=== PATIENT | female | born 1950 | race Caucasian/White ===

== ENCOUNTER 2017-04-02 11:02 | Emergency (ER) | payer MEDICARE, OTHER ==
[2017-04-02] MEDS ORDERED: Proparacaine 0.5% Ophth Soln 15 ML Bottle EYEBOTH ONE (11:40)
--- NOTE | 2017-04-02 11:42 | EDM.PDOC ---
ED HPI GENERAL MEDICAL PROBLEM - General Chief Complaint: Eye Problems Stated Complaint: RIGHT EYE PAIN Time Seen by Provider: 04/02/17 11:31 - History of Present Illness INITIAL COMMENTS - FREE TEXT/NARRATIVE: HISTORY AND PHYSICAL: History of present illness: Patient is a 66-year-old female who has a history of bilateral cataract surgery with Dr. Abdullahi in December of this year and wears bifocal glasses and presents with right eye irritation, itchiness, redness that is been ongoing for about 5 days. She says she saw her local family doctor who put her on eyedrops because they thought it might be pinkeye and she says that it has persisted and not improved and now she feels like the left eye is getting itchy and somewhat red. The patient denies any excessive tearing and says that today she feels like her vision is slightly blurred on the right side but she has not had headaches or systemic complaints of fever chills sinus congestion cough runny nose nausea or vomiting. She denies any foreign body exposure but says that over the last 1-2 days she has felt like there is itchiness but something is in the eye. She does not recall ever getting anything in the eye. Patient also says that when she wakes in the morning there is matting of the eyelashes on the right side. According to the patient she still has issues with up close vision even using her glasses but feels that her distance since the surgery has been significantly improved Review of systems: As per history of present illness and below otherwise all systems reviewed and negative. Past medical history: As per history of present illness and as reviewed below otherwise noncontributory. Surgical history: As per history of present illness and as reviewed below otherwise noncontributory. Social history: No reported history of drug or alcohol abuse. Family history: As per history of present illness and as reviewed below otherwise noncontributory. Physical exam: Gen.: Well-developed well-nourished female who is nontoxic and not photophobic on my evaluation. She has no overt facial swelling or eyelid swelling and vital signs are noted by me. HEENT: Atraumatic, normocephalic, pupils reactive, there is no orbital tenderness or crepitus and EOMs are intact, conjunctiva on the right are beefy and injected as is the sclera on the right, there is no injection of the conjunctiva on the left and no injection of the sclera on the left negative for conjunctival pallor or scleral icterus, mucous membranes moist, throat clear, neck supple, nontender, trachea midline. Please see below for addendum my exam Lungs: Clear to auscultation, breath sounds equal bilaterally, chest nontender. Heart: S1S2, regular rate and rhythm no overt murmurs Abdomen: Soft, nondistended, nontender. NABS .Genitourinary: Deferred. Rectal: Deferred. Extremities: Atraumatic, negative for cords or calf pain. Neurovascular unremarkable. Neuro: Awake, alert, oriented. Cranial nerves II through XII unremarkable. Cerebellum unremarkable. Motor and sensory unremarkable throughout. Exam nonfocal. Diagnostics: Visual acuity, floor seen stain, Brad-Pen evaluation Therapeutics: Visual acuity for distance--right eye 20/70 left eye 20/50 both eyes 20/40 and up close/reading --- right eye 20/200 left eye 20/100 and bilateral 20/60 with her bifocal sunglasses. Patient states she's not sure if the sunglasses are the exact same prescription but she is not surprised by her up close vision being on the poor side. On funduscopic exam is difficult to get in and see the disc exactly due to post cataract changes and patient's inability to tolerate the exam as well as if she were having a dilated exam. On fluoroscein stain, the left eye shows no uptake and the right eye shows multiple areas of punctate uptake distributed along the inner iris and pupillary area. On visual inspection of the same area it looks as if there are potentially small particulate foreign objects in this area but it is difficult to evaluate. IOP on the left is 13, 14 and on the right 15, 15. 1218: The case was discussed with Dr. Abdullahi who was on-call for ophthalmology as well as the addition who did the patient's cataract surgery. He states that what I am describing is likely due to excessive dryness post cataract surgery and likely a kerotinopathy triggering the irritation the itchiness and the punctate uptake that I am seeing. He recommends stopping the antibiotic drops that she is currently using and starting preservative-free tears to be used every 1-2 hours as well as refresh ointment at bedtime. He told me to inform her to call his office on [address] and they will get her in in the next several days for reevaluation. I relayed this phone conversation and all this information to the patient. 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 right eye Pain Score (Numeric/FACES): 6 - Related Data Allergies Allergy/AdvReac Type Severity Reaction Status Date / Time No Known Allergies Allergy Verified 04/02/17 11:20 Home Meds: Home Meds Ascorbic Acid [Vitamin C] 500 mg PO DAILY 04/02/17 [History] Aspirin 1 tab PO DAILY 04/02/17 [History] Calcium Carbonate [Calcium] 600 mg PO BID 04/02/17 [History] Cyanocobalamin (Vitamin B12) [Vitamin B12] 1,000 mcg PO DAILY 04/02/17 [History] Enalapril [Vasotec] 20 mg PO DAILY 04/02/17 [History] Magnesium 250 mg PO DAILY 04/02/17 [History] Simvastatin [Zocor] 20 mg PO BEDTIME 04/02/17 [History] Soy Isofl/Blk Coh/Gr Tea/Yerba [[employer] Caplet] 0 BID 04/02/17 [History] Venlafaxine [Effexor XR] 150 mg PO DAILY 04/02/17 [History] Vit A/Vit C/Vit E/Zinc/Copper [Preservision] 0 each PO BID 04/02/17 [History] rOPINIRole [Requip] 0.25 mg PO BEDTIME 04/02/17 [History] Past Medical History - Past Health History Medical/Surgical History: Denies Medical/Surgical History HEENT History: Reports: Cataract Cardiovascular History: Reports: Cardiomyopathy, Other (See Below) 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 ED EXAM GENERAL W FULL EYE - Physical Exam Exam: See Below (See dictation) Course - Vital Signs Last Recorded V/S: Last Vital Signs Temp 36.8 C 04/02/17 11:24 Pulse 70 04/02/17 11:24 Resp 18 04/02/17 11:24 BP 135/61 04/02/17 11:24 Pulse Ox 94 L 04/02/17 11:24 - Orders/Labs/Meds Orders: Active Orders 24 hr Category Date Time Status Communication Order [RC] STAT Care 04/02/17 11:31 Active Meds: Medications Discontinued Medications Generic Name Dose Route Start Last Admin Trade Name Irene PRN Reason Stop Dose Admin Proparacaine HCl 1 ml 04/02/17 11:40 04/02/17 11:52 Proparacaine 0.5% Ophth Soln EYEBOTH 04/02/17 11:41 1 drop ONETIME ONE Administration Departure - Departure Time of Disposition: 12:26 Disposition: Home, Self-Care 01 Condition: Good Clinical Impression: Irritation of right eye - Discharge Information Referrals: PCP,None [Primary Care Provider] - Forms: ED Department Discharge Additional Instructions: The following information is given to patients seen in the emergency department who are being discharged to home. This information is to outline your options for follow-up care. We provide all patients seen in our emergency department with a follow-up referral. The need for follow-up, as well as the timing and circumstances, are variable depending upon the specifics of your emergency department visit. If you don't have a primary care physician on staff, we will provide you with a referral. We always advise you to contact your personal physician following an emergency department visit to inform them of the circumstance of the visit and for follow-up with them and/or the need for any referrals to a consulting specialist. The emergency department will also refer you to a specialist when appropriate. This referral assures that you have the opportunity for followup care with a specialist. All of these measure are taken in an effort to provide you with optimal care, which includes your followup. Under all circumstances we always encourage you to contact your private physician who remains a resource for coordinating your care. When calling for followup care, please make the office aware that this follow-up is from your recent emergency room visit. If for any reason you are refused follow-up, please contact the [facility] emergency department at and ask to speak to the emergency department charge nurse. [facility]- Internal Medicine and Family [facility] [address] [place] [id number] [facility]--ophthalmology [address] [place] [address] Abdullahi on Tuesday for follow-up early next week and return to ER as needed and as discussed. Please use preservative free artificial tears every 1-2 hours for the next several days. At bedtime please use refresh ointment as directed. Please try to avoid itching and scratching to the area. These stop the antibiotic drops that you're currently using. - My Orders Last 24 Hours: My Active Orders 04/02/17 11:31 Communication Order [RC] STAT - Assessment/Plan Last 24 Hours: My Active Orders 04/02/17 11:31 Communication Order [RC] STAT
[2017-04-02 12:42] VITALS: BP 137/72
== END 2017-04-02 12:36 | disposition home or self-care (01) ==
LOC: MW.ED 11:02
DX: H18.9 Unspecified disorder of cornea (principal); Z79.82 Long term (current) use of aspirin; Z79.899 Other long term (current) drug therapy; Z98.41 Cataract extraction status, right eye; Z98.42 Cataract extraction status, left eye
CPT/HCPCS: 99283

== ENCOUNTER 2020-07-20 18:04 | Emergency (ER) | payer MEDICARE, OTHER ==
[2020-07-20] MEDS ORDERED: cefTRIAXone 1 GM Vial IM ONE (19:31)
[2020-07-20] MEDS ORDERED: Phenazopyridine 200 MG Tab PO ONE (19:32)
--- NOTE | 2020-07-20 19:34 | EDM.PDOC ---
ED HPI GENERAL MEDICAL PROBLEM - General Chief Complaint: Genitourinary Problem Stated Complaint: POSSIBLE BLADDER INFECTION Time Seen by Provider: 07/20/20 18:22 Source of Information: Reports: Patient History Limitations: Reports: No Limitations - History of Present Illness INITIAL COMMENTS - FREE TEXT/NARRATIVE: HISTORY AND PHYSICAL: History of present illness: Patient is a 70-year-old female who presents emergency room today with concern of burning with urination and urinary frequency that started this afternoon. Patient states that she was not sure what her symptoms were but asked her daughter who told her that she likely had a bladder infection. Patient states that she came immediately to the emergency room if she did not want the infection to worsen. Patient states that she has not taken anything for her symptoms. Patient denies any back pain associated with her symptoms. Patient denies fever, chills, chest pain, shortness of breath, or cough. Denies headache, neck stiff ness, change in vision, syncope, or near syncope. Denies nausea, vomiting, abdominal pain, diarrhea, constipation. Has not noted any blood in urine or stool. Patient has been eating and drinking appropriately. Review of systems: As per history of present illness and below otherwise all systems reviewed and negative. Past medical history: As per history of present illness and as reviewed below otherwise noncontributory. Surgical history: As per history of present illness and as reviewed below otherwise noncontributory. Social history: See social history for further information Family history: As per history of present illness and as reviewed below otherwise noncontributory. Physical exam: General: Patient is alert, oriented, and in no acute distress. Patient sitting comfortably on exam table. Vitals stable and reviewed by me. HEENT: Atraumatic, normocephalic, pupils equal and reactive bilaterally, negative for conjunctival pallor or scleral icterus, mucous membranes moist, TMs normal bilaterally, throat clear, neck supple, nontender, trachea midline. No drooling or trismus noted. No meningeal signs. No hot potato voice noted. Lungs: Clear to auscultation, breath sounds equal bilaterally, chest nontender. Heart: S1S2, regular rate and rhythm without overt murmur Abdomen: Soft, nondistended, nontender. Negative for masses or hepatosplenomegaly. Negative for costovertebral tenderness. Pelvis: Stable nontender. Genitourinary: Deferred. Rectal: Deferred. Skin: Intact, warm, dry. No lesions or rashes noted. Extremities: Atraumatic, negative for cords or calf pain. Neurovascular unremarkable. Neuro: Awake, alert, oriented. Cranial nerves II through XII unremarkable. Cerebellum unremarkable. Motor and sensory unremarkable throughout. Exam nonfocal. Notes: Strict return precautions thoroughly discussed with patient. Discussed importance for follow-up with primary care provider. Voices understanding and is agreeable to plan of care. Denies any further questions or concerns at this time. Diagnostics: UA w culture Therapeutics: Rocephin, Pyridium Prescription: Keflex, Pyridium Impression: Urinary tract infection Plan: 1. Take medication as prescribed. You can also use Tylenol as directed for pain and discomfort. 2. Follow-up with a primary care provider as discussed. Return to the ED as needed and as discussed. Definitive disposition and diagnosis as appropriate pending reevaluation and review of above. - Related Data Allergies Allergy/AdvReac Type Severity Reaction Status Date / Time No Known Allergies Allergy Verified 07/20/20 18:32 Home Meds: Home Meds Ascorbic Acid [Vitamin C] 500 mg PO DAILY 04/02/17 [History] Aspirin 1 tab PO DAILY 04/02/17 [History] Calcium Carbonate [Calcium] 600 mg PO BID 04/02/17 [History] Cyanocobalamin (Vitamin B12) [Vitamin B12] 1,000 mcg PO DAILY 04/02/17 [History] Enalapril [Vasotec] 20 mg PO DAILY 04/02/17 [History] Magnesium 250 mg PO DAILY 04/02/17 [History] Simvastatin [Zocor] 20 mg PO BEDTIME 04/02/17 [History] Venlafaxine [Effexor XR] 150 mg PO DAILY 04/02/17 [History] Vit A/Vit C/Vit E/Zinc/Copper [Preservision] 1 tab PO BID 04/02/17 [History] rOPINIRole [Requip] 0.25 mg PO BEDTIME 04/02/17 [History] Omeprazole 20 mg PO DAILY 07/20/20 [History] Phenazopyridine HCl [Pyridium] 200 mg PO TID 2 Days #6 tablet 07/20/20 [Rx] Raloxifene [Evista] 60 mg PO DAILY 07/20/20 [History] cephALEXin [Keflex] 500 mg PO Q8H 7 Days #21 cap 07/20/20 [Rx] Past Medical History - Past Health History Medical/Surgical History: Denies Medical/Surgical History HEENT History: Reports: Cataract Cardiovascular History: Reports: Cardiomyopathy, Other (See Below) 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 ED EXAM, GENERAL - Physical Exam Exam: See Below (see dictation) Course - Vital Signs Last Recorded V/S: Last Vital Signs Temp 97.7 F 07/20/20 20:00 Pulse 92 07/20/20 20:00 Resp 18 07/20/20 20:00 BP 150/77 H 07/20/20 20:00 Pulse Ox 97 07/20/20 20:00 - Orders/Labs/Meds Orders: Active Orders 24 hr Category Date Time Status CULTURE URINE [RM] Stat Lab 07/20/20 18:30 Received Labs: Laboratory Tests 07/20/20 Range/Units 18:30 Urine Color BROWN Urine Appearance CLOUDY Urine pH 6.0 (5.0-8.0) Ur Specific [place] >= 1.030 (1.001-1.035) Urine Protein 100 H (NEGATIVE) mg/dL Urine Glucose (UA) NEGATIVE (NEGATIVE) mg/dL Urine Ketones TRACE H (NEGATIVE) mg/dL Urine Occult Blood LARGE H (NEGATIVE) Urine Nitrite POSITIVE H (NEGATIVE) Urine Bilirubin NEGATIVE (NEGATIVE) Urine Urobilinogen 0.2 (<2.0) EU/dL Ur Leukocyte Esterase TRACE H (NEGATIVE) Urine RBC TOO NUMEROUS TO CT H (0-2/HPF) Urine WBC 15-20 (0-5/HPF) Ur Epithelial Cells OCCASIONAL (NONE-FEW) Urine Bacteria 2+ H (NEGATIVE) Urinalysis Comment Meds: Medications Discontinued Medications Generic Name Dose Route Start Last Admin Trade Name Freq PRN Reason Stop Dose Admin Ceftriaxone Sodium 1 gm 07/20/20 19:31 07/20/20 19:41 Rocephin IM 07/20/20 19:32 Not Given ONETIME ONE Ceftriaxone Sodium 1 gm/ 4 mls @ 4 mls/sec 07/20/20 19:35 07/20/20 19:42 Lidocaine HCl IM 07/20/20 19:36 4 mls/sec ONETIME ONE Administration Phenazopyridine HCl 200 mg 07/20/20 19:32 07/20/20 19:41 Pyridium PO 07/20/20 19:33 200 mg ONETIME ONE Administration Departure - Departure Time of Disposition: 19:33 Disposition: Home, Self-Care 01 Clinical Impression: Urinary tract infection Qualifiers: Urinary tract infection type: acute cystitis Hematuria presence: with hematuria Qualified Code(s): N30.01 - Acute cystitis with hematuria - Discharge Information Prescriptions: cephALEXin [Keflex] 500 mg PO Q8H 7 Days #21 cap Phenazopyridine HCl [Pyridium] 200 mg PO TID 2 Days #6 tablet Instructions: Urinary Tract Infection, Adult Referrals: Keke Nichols MD [Primary Care Provider] - Forms: ED Department Discharge Additional Instructions: The following information is given to patients seen in the emergency department who are being discharged to home. This information is to outline your options for follow-up care. We provide all patients seen in our emergency department with a follow-up referral. The need for follow-up, as well as the timing and circumstances, are variable depending upon the specifics of your emergency department visit. If you don't have a primary care physician on staff, we will provide you with a referral. We always advise you to contact your personal physician following an emergency department visit to inform them of the circumstance of the visit and for follow-up with them and/or the need for any referrals to a consulting specialist. The emergency department will also refer you to a specialist when appropriate. This referral assures that you have the opportunity for follow-up care with a specialist. All of these measure are taken in an effort to provide you with optimal care, which includes your follow-up. Under all circumstances we always encourage you to contact your private physician who remains a resource for coordinating your care. When calling for follow-up care, please make the office aware that this follow-up is from your recent emergency room visit. If for any reason you are refused follow-up, please contact the [facility] Emergency Department at and asked to speak to the emergency department charge nurseElliot Minor [facility] [address] [place] [address] [facility] [address] [place] [address] 1. Take medication as prescribed. You can also use Tylenol as directed for pain and discomfort. 2. Follow-up with a primary care provider as discussed. Return to the ED as needed and as discussed. Sepsis Event Note (ED) - Evaluation Sepsis Screening Result: No Definite Risk - Focused Exam Vital Signs: Vital Signs Temp Pulse Resp BP Pulse Ox 07/20/20 20:00 97.7 F 92 18 150/77 H 97 07/20/20 18:33 97.8 F 102 H 18 157/92 H 94 L - My Orders Last 24 Hours: My Active Orders 07/20/20 18:30 CULTURE URINE [RM] Stat - Assessment/Plan Last 24 Hours: My Active Orders 07/20/20 18:30 CULTURE URINE [RM] Stat
[2020-07-20] MEDS ORDERED: cefTRIAXone 1 GM in Lidocaine 1% 4 ML IM ONE (19:35)
[2020-07-20 20:52] VITALS: BP 150/77; PULSE 92
== END 2020-07-20 20:00 | disposition home or self-care (01) ==
LOC: MW.ED 18:04
DX: N30.01 Acute cystitis with hematuria (principal)
CPT/HCPCS: 81001; 87086; 87088; 87186; 96372; 99283; A9270; J0696; J2001

== ENCOUNTER 2022-05-22 15:18 | Emergency (ER) | payer MEDICARE, OTHER ==
[2022-05-22 16:33] LABS: CARBON DIOXIDE,CO2 31.5 mmol/L (21.0-32.0); POTASSIUM,K 4.3 mmol/L (3.5-5.1)
[2022-05-22] MEDS ORDERED: Ketorolac 60 MG/2 ML SDV IM ONE (16:50)
[2022-05-22 17:27] VITALS: BP 160/89; PULSE 90
== END 2022-05-22 17:26 | disposition home or self-care (01) ==
LOC: MW.ED 15:18
DX: R09.1 Pleurisy (principal); I10 Essential (primary) hypertension; Z79.899 Other long term (current) drug therapy; Z79.82 Long term (current) use of aspirin; Z90.710 Acquired absence of both cervix and uterus
CPT/HCPCS: 36415; 71046; 80053; 85025; 85652; 86140; 96372; 99283; J1885

== ENCOUNTER 2022-06-25 10:54 | Emergency (ER) | payer MEDICARE, OTHER ==
[2022-06-25 11:00] VITALS: BP 162/76; PULSE 106
[2022-06-25 12:13] LABS: CORONAVIRUS COVID-19 NAA NEGATIVE (NEGATIVE); INFLUENZA A NAA NEGATIVE (NEGATIVE); INFLUENZA B NAA NEGATIVE (NEGATIVE); RESPIRATORY SYNCYTIAL VIR NAA NEGATIVE (NEGATIVE)
[2022-06-25 12:19] LABS: CARBON DIOXIDE,CO2 27.2 mmol/L (21.0-32.0); POTASSIUM,K 3.6 mmol/L (3.5-5.1)
[2022-06-25] MEDS ORDERED: Albuterol/Ipratropium 3.0-0.5 MG/3 ML Neb Soln NEB ONE (12:30)
[2022-06-25] MEDS ORDERED: methylPREDNISolone Sodium Succinate 125 MG/2 ML SDV IVPUSH ONE (12:34)
== END 2022-06-25 14:16 | disposition home or self-care (01) ==
LOC: MW.ED 10:54
DX: J20.9 Acute bronchitis, unspecified (principal); J06.9 Acute upper respiratory infection, unspecified; E78.00 Pure hypercholesterolemia, unspecified; I11.9 Hypertensive heart disease without heart failure; Z20.822 Contact with and (suspected) exposure to COVID-19; Z79.82 Long term (current) use of aspirin; Z79.899 Other long term (current) drug therapy
CPT/HCPCS: 0241U; 36415; 71045; 80053; 83605; 83735; 83880; 84484; 85025; 85610; 87040; 93005; 94640; 96374; 99284; J2930; 93010; J7620-GY

== ENCOUNTER 2023-04-02 10:01 | Emergency (ER) | payer MEDICARE, OTHER ==
[2023-04-02 10:13] VITALS: BP 167/91
[2023-04-02 10:50] LABS: CORONAVIRUS COVID-19 NAA NEGATIVE (NEGATIVE); INFLUENZA A NAA NEGATIVE (NEGATIVE); INFLUENZA B NAA NEGATIVE (NEGATIVE)
[2023-04-02 11:33] VITALS: PULSE 88
== END 2023-04-02 11:32 | disposition home or self-care (01) ==
LOC: MW.ED 10:01
DX: J06.9 Acute upper respiratory infection, unspecified (principal); I10 Essential (primary) hypertension; E78.00 Pure hypercholesterolemia, unspecified; Z20.822 Contact with and (suspected) exposure to COVID-19; Z79.82 Long term (current) use of aspirin; Z79.899 Other long term (current) drug therapy
CPT/HCPCS: 0240U; 99283